=== PATIENT | male | born 1955 | race Caucasian/White ===

== ENCOUNTER → 2016-09-15 | Outpatient (CLI) | payer BC ==
[~2016-09-15] MED LIST: MULT-506 PO; OMEG10007 PO; RPF/8 PO
--- NOTE | 2016-09-15 13:36 | DIAGNOSTIC IMAGING REPORT ---
LUMBAR SPINE 5 VIEWS HISTORY: LOW BACK PAIN COMPARISON: None. FINDINGS: There is no fracture. No subluxation. Severe disc space narrowing at L5-S1 with vacuum phenomenon. Moderate facet degenerative changes at L4-L5 and L5-S1. Mild disc space narrowing at L4-L5. IMPRESSION: No fracture or subluxation within the lumbar spine. Degenerative changes within the lower lumbar spine as described above. Electronically signed by: Caio Johnson M.D. 09/15/2016 1:35 PM Dictated Date/Time: 09/15/2016 1:16 PM
== END | disposition home or self-care (01) ==
LOC: C.RADBC 12:53
PROVIDERS: ATTEND Internal Medicine
DX: M54.5 Low back pain (principal)